=== PATIENT | male | born 1990 | race African-American/Black ===

== ENCOUNTER 2017-04-30 12:23 | Emergency (ER) | payer SELFPAY | END 2017-04-30 12:57 | disposition home or self-care (01) | LOC: SCSER 12:23 | DX: L23.5 Allergic contact dermatitis due to other chemical products (principal); L25.9 Unspecified contact dermatitis, unspecified cause; J45.909 Unspecified asthma, uncomplicated | CPT/HCPCS: 99282 ==

== ENCOUNTER 2018-12-29 10:28 | Emergency (ER) | payer SELFPAY ==
[2019-01-01 00:02] LABS: Chlam.trachomatis by PCR,Urine Not Detected (NotDetected)
== END 2018-12-29 10:57 | disposition home or self-care (01) ==
LOC: SCSER 10:28
DX: Z11.3 Encounter for screening for infections with a predominantly sexual mode of transmission (principal); J45.909 Unspecified asthma, uncomplicated; Z79.51 Long term (current) use of inhaled steroids
CPT/HCPCS: 87491; 87591; 99283

== ENCOUNTER 2019-09-18 13:40 | Emergency (ER) | payer OTHER, SELFPAY | END 2019-09-18 14:17 | disposition home or self-care (01) | LOC: ERS 13:40 | DX: J06.9 Acute upper respiratory infection, unspecified (principal); Z20.828 Contact with and (suspected) exposure to other viral communicable diseases | CPT/HCPCS: 87635; 99283; U0002 ==